=== PATIENT | female | born 1990 | race Caucasian/White ===

== ENCOUNTER 2017-02-02 11:34 | Emergency (ER) | payer SELFPAY ==
[~2017-02-02 11:34] MED LIST: BACTRIM DS DPS1 TAB PO; LATUDA60 MG PO; NORCO 5-325 TA1 EACH PO
--- NOTE | 2017-02-05 13:18 | ER ---
ADMIT: 02/02/2017 RM/LOC: ER [facility] MR#: [id number] [facility] [address], [place] [id number] RICKEY MARILUSHREYAS [address] [place] [address] Emergency Room Report SEX: F AGE: 26 : 1990 DATE: 02/02/2017 TIME: 1134 hours. Please refer to my T-sheet for complete H and P. Briefly, the patient is a 26-year-old who comes in with runny nose, cough, cold-like symptoms for about 10 days. She says she is not improving. She does use meth, her last use was 3 days ago. She does smoke cigarettes. She is here for evaluation. PHYSICAL EXAMINATION: VITAL SIGNS: Blood pressure 93/86, pulse 134, respirations 16, temp 101.8, and saturating 98%. GENERAL: No acute distress. HEENT: Mild rhinorrhea. Throat slightly erythematous. LUNGS: Slightly coarse, moving adequate air. SKIN: No rash. EMERGENCY DEPARTMENT COURSE: I gave her 1 g of Tylenol and Zithromax. She is ready for discharge. ASSESSMENT: 1. Bronchitis. 2. Nicotine abuse. PLAN: Stop smoking. Fluids. Avoid meth. Return if worse. Z-Moy. Follow up with Dr. Adorno. Chadd Lam MD/ sherifl JOB #: [id number] CC: Chadd Lam MD, Attending Physician
[2017-05-23] MEDS ORDERED: FEOSOL-DPS325 MG PO (13:20)
[2017-05-23] MEDS ORDERED: CIPRO DPS500 MG PO (13:20)
[2017-05-23] MEDS ORDERED: LAMICTAL DPS100 MG PO (13:20)
[2017-05-23] MEDS ORDERED: ULTRAM DPS50 MG PO (13:21)
== END 2017-02-02 12:50 | disposition home or self-care (01) ==
LOC: ER 11:34
DX: J20.9 Acute bronchitis, unspecified (principal); F31.9 Bipolar disorder, unspecified; F17.210 Nicotine dependence, cigarettes, uncomplicated; Z79.899 Other long term (current) drug therapy